=== PATIENT | male | born 1980 | race Caucasian/White ===

== ENCOUNTER 2016-11-09 15:48 | Emergency (ER) | payer OTHER ==
[2016-11-09 16:18] VITALS: BP 155/75; PULSE 79; RESP 18; TEMP 98.3
--- NOTE | 2016-11-09 16:57 | XR ---
EXAMINATION TYPE: XR knee complete LT DATE OF EXAM: 11/09/2016 COMPARISON: NONE HISTORY: Knee pain TECHNIQUE: 3 views FINDINGS: I see no fracture nor dislocation. Joint spaces are normal. There is no sign of knee joint effusion. IMPRESSION: Normal left knee
--- NOTE | 2016-11-09 17:16 | ED ---
Lower Extremity Injury HPI - General Chief Complaint: Extremity Injury, Lower Stated Complaint: Knee Pain Time Seen by Provider: 11/09/16 16:22 Source: patient, RN notes reviewed Mode of arrival: wheelchair Limitations: no limitations - History of Present Illness Initial Comments: 36-year-old male presents emergency Department chief complaint of left knee pain. Patient states has been bothering her for last week. Patient does not remember an injury. Patient states her is an area is bruising and swelling noted to the anterior surface over the bone. Patient states that it hurts when him ablates better at rest. Patient states he was seen at urgent care and told that nothing was wrong for x-ray reading. Patient was advised to follow-up with orthopedics early states he cannot get into anybody because he has Medicaid. Patient denies any paresthesias. Denies any laxity or giving out of his knee no clicking or popping. He's had no prior injuries. - Related Data Previous Rx's Medication Instructions Recorded Acetaminophen-Codeine 300-30mg 1 tab PO Q4H PRN #20 tablet 11/09/16 [Tylenol #3] Ibuprofen [Motrin] 600 mg PO Q8HR PRN #30 tab 11/09/16 Allergies Allergy/AdvReac Type Severity Reaction Status Date / Time No Known Allergies Allergy Verified 11/09/16 16:18 Review of Systems ROS Statement: Those systems with pertinent positive or pertinent negative responses have been documented in the HPI. ROS Other: All systems not noted in ROS Statement are negative. Past Medical History Additional Past Medical History / Comment(s): pancreatitis History of Any Multi-Drug Resistant Organisms: None Reported Past Surgical History: No Surgical Hx Reported Past Psychological History: No Psychological Hx Reported Smoking Status: Former smoker Past Alcohol Use History: Occasional Past Drug Use History: None Reported General Exam Limitations: no limitations General appearance: alert, in no apparent distress Respiratory exam: Present: normal lung sounds bilaterally. Absent: respiratory distress, wheezes, rales, rhonchi, stridor Cardiovascular Exam: Present: regular rate, normal rhythm, normal heart sounds. Absent: systolic murmur, diastolic murmur, rubs, gallop, clicks Extremities exam: Present: other (Left knee full range of motion there is mild tenderness over the anterior tibial region there is small area of ecchymosis and swelling there is non-boggy. There is no joint effusion no laxity negative anterior posterior drawer no pain with valgus or varus) Neurological exam: Present: alert, oriented X3, CN II-XII intact, reflexes normal. Absent: motor sensory deficit Skin exam: Present: warm, dry, intact, normal color. Absent: rash Course Vital Signs 11/09/16 16:16 Temperature 98.3 F Pulse Rate 79 Respiratory 18 Rate Blood Pressure 155/75 O2 Sat by Pulse 96 Oximetry Medical Decision Making - Medical Decision Making 36-year-old male present emergency department for left knee pain. There is no acute fracture or abnormality per x-ray read. This most likely is just a contusion. Patient felt that there is something wrong and he may follow-up with on-call orthopedics Dr. Mahajan. Return parameters were discussed. Disposition Clinical Impression: Left knee pain Disposition: HOME SELF-CARE Condition: Stable Instructions: Knee Pain (ED) Additional Instructions: Please return to the Emergency Department if symptoms worsen or any other concerns. Prescriptions: Acetaminophen-Codeine 300-30mg [Tylenol #3] 1 tab PO Q4H PRN #20 tablet PRN Reason: pain Ibuprofen [Motrin] 600 mg PO Q8HR PRN #30 tab PRN Reason: Pain Referrals: None,Stated [Primary Care Provider] - 1-2 days Jose Mahajan DO [Doctor of Osteopathic Medicine] - 1-2 days Time of Disposition: 17:16
== END 2016-11-09 17:22 | disposition home or self-care (01) ==
LOC: EC 15:48
DX: M25.562 Pain in left knee (principal); M79.89 Other specified soft tissue disorders; R58 Hemorrhage, not elsewhere classified; Z87.891 Personal history of nicotine dependence
CPT/HCPCS: 99283